=== PATIENT | female | born 1965 | race Asian ===

== ENCOUNTER 2018-02-12 16:09 | Emergency (ER) | payer MEDICAID ==
[~2018-02-12] VITALS: Ht 167.6 cm; Wt 68.2 kg
[2018-02-12] MEDS ORDERED: normal saline 1000ML IV soln IV ONE (16:30)
[2018-02-12] MEDS ORDERED: ipratropium/albuterol 3ml nebule NEB ONE (16:30)
[2018-02-12 16:56] LABS: BASOPHILS # (AUTO) 0.1 X10'3 (0-0.2); BASOPHILS % (AUTO) 0.5 % (0-1); EOSINOPHILS # (AUTO) 8.2 X10'3 (0-0.9); HEMATOCRIT 40.4 % (35.0-45.0); HEMOGLOBIN 13.9 g/dl (12.0-16.0); LYMPHOCYTES # (AUTO) 1.9 X10'3 (1.1-4.8); LYMPHOCYTES % (AUTO) 14.3 % (21-51); MEAN CORPUSCULAR HEMOGLOBIN 29.3 PG (27.0-31.0); MEAN CORPUSCULAR HGB CONC 34.3 % (33.0-36.5); MEAN CORPUSCULAR VOLUME 85.2 FL (78-98); MEAN PLATELET VOLUME 8.3 FL (7.4-10.4); MONOCYTES # (AUTO) 0.6 X10'3 (0-0.9); MONOCYTES % (AUTO) 4.5 % (2-12); NEUTROPHILS # (AUTO) 2.6 X10'3 (1.8-7.7); NEUTROPHILS % (AUTO) 19.5 % (42-75); PLATELET COUNT 203 X10'3 (140-440); RED BLOOD COUNT 4.74 X10'6 (4.20-5.60); WHITE BLOOD COUNT 13.4 X10'3 (4.5-11.0)
[2018-02-12 17:00] LABS: ALANINE AMINOTRANSFERASE 31 U/L (12-78); ALBUMIN 3.8 G/DL (3.4-5.0); ALBUMIN/GLOBULIN RATIO 0.9 (1.1-1.5); ALKALINE PHOSPHATASE 80 IU/L (46-116); ANION GAP 8 (8-16); ASPARTATE AMINO TRANSFERASE 33 U/L (10-37); BILIRUBIN,TOTAL 0.3 MG/DL (0.1-1.0); BLOOD UREA NITROGEN 15 MG/DL (7-18); BUN/CREATININE RATIO 18.5 (6.6-38.0); CHLORIDE 107 MMOL/L (99-107); CREATININE 0.81 MG/DL (0.40-0.90); GLUCOSE 98 MG/DL (70-104); SODIUM 144 MMOL/L (135-145); TOTAL PROTEIN 7.9 G/DL (6.4-8.2); eGFR 74 ML/MIN
[2018-02-12] MEDS ORDERED: methylPREDNISolone sod succ 125mg/2ml vial IV ONE (17:05)
[2018-02-12 17:10] LABS: EOSINOPHILS % (AUTO) 61.2 % (0-6)
[2018-02-12] MEDS ORDERED: codeine/proMETHazine 5ml UD syrup PO ONE (17:35)
[2018-02-12] MEDS ORDERED: PRED10TA23 PO (17:44)
[2018-02-12] MEDS ORDERED: PHEN118S9 PO (17:44)
[2018-02-12] MEDS ORDERED: AZIT-63 PO (17:44)
[2018-02-12] MEDS ORDERED: BECL8.7A7 INH (17:44)
[2018-02-12 18:00] VITALS: BP 127/78
[2018-02-13] MEDS ORDERED: GUAI10SY2 PO (21:27)
== END 2018-02-12 18:38 | disposition home or self-care (01) ==
LOC: ER 16:10
DX: J45.909 Unspecified asthma, uncomplicated (principal); Z79.899 Other long term (current) drug therapy
CPT/HCPCS: 36415; 71046; 80053; 83605; 84145; 84484; 85025; 87040; 93005; 94640; 94760; 96361; 96374; 99285; J2930; J7030

== ENCOUNTER 2018-02-13 17:28 | Emergency (ER) | payer MEDICAID ==
[~2018-02-13] VITALS: Ht 167.6 cm; Wt 68.0 kg
[~2018-02-13 17:28] MED LIST: AZIT-63 PO; BECL8.7A7 INH; PHEN118S9 PO; PRED10TA23 PO
[2018-02-13 18:14] LABS: BASOPHILS % (AUTO) 0.3 % (0-1); EOSINOPHILS % (AUTO) 12.3 % (0-6); HEMATOCRIT 34.8 % (35.0-45.0); HEMOGLOBIN 12.2 g/dl (12.0-16.0); LYMPHOCYTES # (AUTO) 2.2 X10'3 (1.1-4.8); LYMPHOCYTES % (AUTO) 25.7 % (21-51); MEAN CORPUSCULAR HEMOGLOBIN 29.8 PG (27.0-31.0); MEAN CORPUSCULAR HGB CONC 34.9 % (33.0-36.5); MEAN CORPUSCULAR VOLUME 85.3 FL (78-98); MEAN PLATELET VOLUME 8.2 FL (7.4-10.4); MONOCYTES # (AUTO) 0.8 X10'3 (0-0.9); MONOCYTES % (AUTO) 9.1 % (2-12); NEUTROPHILS # (AUTO) 4.4 X10'3 (1.8-7.7); NEUTROPHILS % (AUTO) 52.6 % (42-75); PLATELET COUNT 193 X10'3 (140-440); RED BLOOD COUNT 4.08 X10'6 (4.20-5.60); RED CELL DISTRIBUTION WIDTH 14.8 % (11.5-14.5); WHITE BLOOD COUNT 8.4 X10'3 (4.5-11.0)
[2018-02-13 18:21] LABS: ALANINE AMINOTRANSFERASE 38 U/L (12-78); ALBUMIN 3.5 G/DL (3.4-5.0); ALKALINE PHOSPHATASE 71 IU/L (46-116); ANION GAP 13 (8-16); ASPARTATE AMINO TRANSFERASE 26 U/L (10-37); BILIRUBIN,TOTAL 0.4 MG/DL (0.1-1.0); BLOOD UREA NITROGEN 15 MG/DL (7-18); BUN/CREATININE RATIO 18.3 (6.6-38.0); CALCIUM 8.7 MG/DL (8.5-10.1); CHLORIDE 109 MMOL/L (99-107); CREATININE 0.82 MG/DL (0.40-0.90); GLUCOSE 100 MG/DL (70-104); POTASSIUM 3.4 MMOL/L (3.5-5.1); SODIUM 146 MMOL/L (135-145); TOTAL CARBON DIOXIDE 24.3 MMOL/L (24-32); eGFR 73 ML/MIN
[2018-02-13] MEDS ORDERED: GUAI10SY2 PO (21:27)
[2018-02-13] MEDS ORDERED: ipratropium/albuterol 3ml nebule NEB ONE (21:30)
[2018-02-13] MEDS ORDERED: benzonatate 100mg capsule PO ONE (21:30)
[2018-02-13 22:16] VITALS: BP 167/103
== END 2018-02-13 22:17 | disposition home or self-care (01) ==
LOC: ER 17:31
DX: J45.909 Unspecified asthma, uncomplicated (principal); Z79.899 Other long term (current) drug therapy
CPT/HCPCS: 36415; 71046; 80053; 85025; 94640; 94760; 99285